=== PATIENT | male | born 1985 | race Hispanic/Latino ===

== ENCOUNTER 2023-04-09 06:19 | Day surgery (SDC) | payer BC ==
[2023-03-31 11:02] VITALS: BMI 32.1
[2023-04-09] MEDS ORDERED: Levofloxacin 500 mg/D5W 100 ml Premix Bag ONE (06:38)
[2023-04-09] MEDS ORDERED: Iopamidol 15 ML ONE ×3 (06:48→08:23)
[2023-04-09] MEDS ORDERED: Fentanyl 250 MCG/5 ML VIAL ONE (07:25)
[2023-04-09] MEDS ORDERED: Midazolam HCl 2 mg/2 ml Vial ONE (07:25)
[2023-04-09] MEDS ORDERED: fentaNYL 50 mcg/mL 1 mL Vial ONE ×5 (07:26→09:32)
[2023-04-09] MEDS ORDERED: Ketorolac Tromethamine 30 MG/ML VIAL ONE (07:35)
[2023-04-09] MEDS ORDERED: PROPOFOL 200 MG/20 ML VIAL ONE (07:35)
[2023-04-09] MEDS ORDERED: Lidocaine 1% PF 5 ML VIAL ONE (07:35)
[2023-04-09] MEDS ORDERED: Ondansetron PF 4 MG/2 ML Vial ONE (07:35)
[2023-04-09] MEDS ORDERED: Triamcinolone 40 MG/ML VIAL ONE ×2 (07:59→08:02)
[2023-04-09] MEDS ORDERED: HYDROcodone/Acetaminophen 5/325 mg Tablet ONE (10:39)
== END 2023-04-09 12:00 | disposition home or self-care (01) ==
LOC: SDC 06:19
PROVIDERS: ATTEND Urology
PROC: 0TU Urinary System, Supplement (ICD-10-PCS; principal; 2023-04-09)
DX: N39.0 Urinary tract infection, site not specified (principal); N32.89 Other specified disorders of bladder; R39.11 Hesitancy of micturition; Z79.899 Other long term (current) drug therapy
CPT/HCPCS: 74420; C1769; J1885; J1956; J2250; J2405; J2704; J3010; J3301; Q9967